=== PATIENT | female | born 1955 | race Caucasian/White ===

== ENCOUNTER → 2019-01-18 | Outpatient (CLI) | payer BC ==
--- NOTE | 2019-01-19 21:57 | CT ---
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 Delayed images through the kidneys were obtained. Coronal/sagittal reconstructions performed. CT DLP: 440 mGycm Automated exposure control for dose reduction was used. FINDINGS: Visualized intracranial structures, paranasal sinuses, mastoid air cells, and orbits and globes appea r clear. Nasopharynx is clear. Prominent dental amalgam causing artifacts limiting visualization of portions of the oropharynx. Punc arizmendi calcification suggested in the region of the left palatine tonsils likely reflects sequela of pr ior infection. Some asymmetric effacement of the right vallecular space likely secondary to asymmetrically more tons illar hypertrophy. Epiglottis and prevertebral soft tissues within normal limits. Glottic and subglottic structures as well as the tracheal column and visualized upper lungs appear cl ear. Thyroid, submandibular, and left parotid glands appear satisfactory. Large fungating mass along the right lateral posterior lower scalp and upper neck located behind the right ear measures up to 5.8 cm AP by 1.2 cm thick by 6.7 cm craniocaudal. 9 mm enlarged lymph node posteriorly and just adjacent to the anterior margin of the mass within the superficial lobe of the right parotid gland. Asymmetrically, borderline enlarged right station to be and posterior truncal lymph nodes on the righ t measure up to 7 mm, refer to axial image 27, 32, and 36. No additional cervical lymphadenopathy seen. Moderate endplate spondylosis mid cervical spine. IMPRESSION: 1. FUNGATING MASS ALONG THE SKIN OF THE RIGHT LATERAL POSTERIOR SCALP AND UPPER NECK LOCATED BEHIND T HE RIGHT EAR MEASURING 6.7 X 5.8 X 1.2 CM. 2. MILDLY ENLARGED 9 MM RIGHT PAROTID SPACE LYMPH NODE LOCATED POSTERIORLY IN THE SUPERFICIAL LOBE A DJACENT TO THE ANTERIOR MARGIN OF THE MASS. 3. A COUPLE ADDITIONAL BORDERLINE SIZED RIGHT-SIDED CERVICAL LYMPH NODES WITHIN STATION 2B AND LIP AND GATE BUILDER IOR TRIANGLE ARE SOMEWHAT SUSPICIOUS GIVEN ASYMMETRY.
== END | disposition home or self-care (01) ==
LOC: RADCTMAIN 07:15
PROVIDERS: ATTEND Surgery Plastic and Reconstructive Surgery
DX: R59.9 Enlarged lymph nodes, unspecified (principal); C44.42 Squamous cell carcinoma of skin of scalp and neck; Z88.2 Allergy status to sulfonamides
CPT/HCPCS: 70491; Q9967

== ENCOUNTER → 2020-03-26 | Outpatient (CLI) | payer BC ==
[2020-03-26 08:44] LABS: Appearance,Urine Clear (Clear); Bilirubin,Urine Negative (Negative); Blood,Urine Negative (Negative); Color,Urine Light Yellow; Glucose,Urine (UA) Negative (Negative); HGB 12.9 gm/dL (11.4-16.0); Ketones,Urine Negative (Negative); Leukocyte Esterase,Urine Negative (Negative); MCH 31.2 pg (25.0-35.0); MCV 91.8 fL (80.0-100.0); Nitrite,Urine Negative (Negative); PH, Urine 6.5 (5.0-8.0); Platelet Count 266 k/uL (150-450); Protein,Urine Negative (Negative); RBC 4.14 m/uL (3.80-5.40); RDW 13.3 % (11.5-15.5); Specific Gravity,Urine 1.012 (1.001-1.035); Urobilinogen,Urine <2.0 mg/dL (<2.0); WBC 5.1 k/uL (3.8-10.6)
[2020-03-26 08:50] LABS: Albumin 4.5 g/dL (3.5-5.0); Calcium 9.6 mg/dL (8.4-10.2); Partial Thromboplastin Time 23.5 sec (22.0-30.0); Potassium 4.5 mmol/L (3.5-5.1); Prothrombin Time 10.3 sec (9.0-12.0); Total Bilirubin 0.4 mg/dL (0.2-1.3); Total Protein 7.8 g/dL (6.3-8.2)
== END | disposition home or self-care (01) ==
LOC: LABPAT 07:52
PROVIDERS: ATTEND Orthopaedic Surgery
DX: Z01.818 Encounter for other preprocedural examination (principal); Z01.812 Encounter for preprocedural laboratory examination
CPT/HCPCS: 36415; 80053; 81003; 85027; 85610; 85730; 87070; 93005

== ENCOUNTER 2020-04-06 05:40 | Observation (INO) | payer BC ==
[2020-03-30 11:02] VITALS: BMI 26.2
[~2020-04-06 05:40] MED LIST: ACETAMINOPHEN TAB 500 MG TAB PO PRN; DEXAMETHASONE SOD PHOSPHATE 4 MG/ML 1 ML VIAL IV ONE; GABAPENTIN 300 MG CAP PO PRN; HYDROmorphone 0.5 MG/0.5 ML SYRINGE IVP PRN; LIDOCAINE 1% (10MG/ML) FOR IV START INTRADERMA PRN; MELOXICAM 7.5 MG TAB PO PRN; MIDAZOLAM 2 MG/2 ML VIAL IV PRN; ONDANSETRON 4 MG/2 ML VIAL IVP ONE; ROPIVACAINE 246.25 MG, EPINEPHrine 0.5 MG, KETOROLAC 30 MG, cloNIDine HCL/PF 80 MCG, WA... MISCELLANE PRN; TRANEXAMIC ACID 1,000 MG in SODIUM CHLORIDE 0.9% 100 ML IVPB PRN
[2020-04-06] MEDS ORDERED: LIDOCAINE 1% (10MG/ML) FOR IV START INTRADERMA ONE (06:30)
[2020-04-06] MEDS: LACTATED RINGERS 1,000 ML IV SCH (06:31)
[2020-04-06] MEDS ORDERED: MIDAZOLAM 2 MG/2 ML VIAL ONE (06:55)
[2020-04-06] MEDS ORDERED: fentaNYL (PF) 50 MCG/ML 2 ML AMP ONE (06:55)
[2020-04-06] MEDS ORDERED: SODIUM CHLORIDE 0.9% IRRIG 1,000 ML BTL IRRIGATION ONE (06:55)
[2020-04-06] MEDS ORDERED: PROPOFOL 10 MG/ML 20 ML VIAL IV ONE (06:55)
[2020-04-06] MEDS ORDERED: TRANEXAMIC ACID 1,000 MG/10 ML VIAL ONE (06:55)
[2020-04-06] MEDS ORDERED: ePHEDrine SULFATE/0.9% NACL/PF 50 MG/5 ML SYRINGE IV ONE (06:55)
[2020-04-06] MEDS ORDERED: HEPARIN SODIUM,PORCINE 10,000 UNIT/ML 1 ML VIAL ONE (06:55)
[2020-04-06] MEDS ORDERED: SODIUM CHLORIDE 0.9% 100 ML BAG ONE (06:55)
[2020-04-06] MEDS ORDERED: HYDROmorphone 0.2 MG/1 ML SYRINGE IVP PRN (06:56)
[2020-04-06] MEDS ORDERED: NALOXONE 0.4 MG/ML 1 ML VIAL IV PRN (06:56)
[2020-04-06] MEDS ORDERED: HYDROcodone/APAP 5-325MG 1 EACH TAB PO PRN (06:56)
[2020-04-06] MEDS ORDERED: hydrOXYzine pamoate 25 MG CAP PO PRN (06:56)
[2020-04-06] MEDS ORDERED: MAGNESIUM HYDROXIDE 2,400 MG/10 ML CUP PO PRN (06:56)
[2020-04-06] MEDS ORDERED: HYDROmorphone 0.5 MG/0.5 ML SYRINGE IVP PRN (06:56)
[2020-04-06] MEDS ORDERED: HYDROmorphone 1 MG/ML 1 ML SYRINGE IVP PRN (06:56)
[2020-04-06] MEDS ORDERED: diazePAM 5 MG TAB PO PRN (06:56)
[2020-04-06] MEDS ORDERED: ONDANSETRON 4 MG/2 ML VIAL IVP PRN (06:56)
[2020-04-06] MEDS ORDERED: ceFAZolin 3,000 MG in SODIUM CHLORIDE 0.9% IRRIGATIO 3,000 ML IRRIGATION ONE (06:59)
[2020-04-06] MEDS ORDERED: LACTATED RINGERS 1,000 ML IV ONE (08:12)
--- NOTE | 2020-04-06 08:21 | P.OP ---
Date of Procedure: 04/06/20 Preoperative Diagnosis: Severe osteoarthritis right hip Postoperative Diagnosis: Severe osteoarthritis right hip Procedure(s) Performed: Right total hip arthroplasty with a direct anterior approach Implants: [employer]hew Polarstem standard size 2 [employer] R3, 3 hole hemispherical acetabular shell, 48 mm [employer] Reflection 6.5 mm cancellus screw, 20 mm 2 [employer] R3, XLPE 20 acetabular liner [employer]hew Oxinium femoral head 32 m, +0 All components were press-fit. The articulation is Oxinium on polyethylene. Anesthesia: spinal Surgeon: Walter Leyva Mower Mechanic #1: Kari Overton Estimated Blood Loss (ml): 100 Pathology: other (Femoral head) Condition: stable Disposition: PACU Indications for Procedure: After failure of conservative treatment we discussed the surgical and nonsurgic al treatment options at length. Patient wishes to proceed with a total hip arthroplasty with a direct anterior approach. Complications specific to this procedure were discussed at length, including but not limited to infection, leg length discrepancy, dislocation, nerve injury, and fracture. Covid-19 was also discussed at length with the patient, and they are aware of the current policies and procedures. The patient was given the option of delaying surgery, but they elect to proceed knowing these risks. Patient is aware of all these complications and informed consent was obtained Operative Findings: The operative findings are consistent with severe osteoarthritis the right hip Description of Procedure: Patient was seen and evaluated in the preoperative area and the consent was reviewed. The operative site was marked with a skin marker. The patient was then brought to the operating room and given preoperative antibiotics i ntravenously. 1 g of Tranexamic acid was also given intravenously. A spinal anesthetic was administered by the anesthesia department. The patient was then placed on the Essex table with the bony prominences well-padded. The hip area was then prepped with a ChloraPrep solution and draped in the usual sterile fashion. A universal timeout was then performed, which confirmed the patient's name, s urgical site, ALLERGIES, and procedure being performed on the consent. Next the incision site was located at 1 cm distal and 1 cm lateral to the anterior superior iliac spine. The skin and subcutaneous tissues were sharply incised. Incision was carefully dissected down to the fascia overlying the tensor fascia sera muscle. This fascia was then incised in line with the incision. Care was taken to stay laterally in order to avoid injuring the lateral femoral cutaneous nerve. Next, using blunt finger dissection, the tensor fascia sera muscle was dissected off its investing fascia. The muscle was then carefully retracted laterally with a cobra retractor over the lateral neck of the femur. Next, the circumflex vessels were identified and cauterized using the AquaMantis device. The anterior hip capsule was then exposed. The capsule was then opened and an inverted T fashion. Cobra retractors were then placed intracapsularly. The retractors were maintained intracapsular throughout the procedure. The proximal femur was then visualized. A small amount of traction was placed on the leg. The femoral neck was then osteotomized appropriate level above the lesser trochanter. A small wedge of bone was then removed from the remaining femoral head. Next, using a corkscrew the femoral head was removed from the acetabulum. On gross visual inspection, the femoral head had complete loss of articular cartilage and multiple periarticular osteophytes. The femoral head was then measured. Attention was then turned to the acetabulum. The acetabulum was exposed and any remaining labrum was excised. Sequential reaming of the acetabulum was performed using fluoroscopic guidance until there was a good bed of bleeding cancellus bone. When the appropriate size was reached, a trial was then placed. The position and fit of the trial was checked with fluoroscopy. The trial was then removed. Then, using fluoroscopic guidance, the final implant was impacted at 20 of anteversion and 40 of abduction, and fully seated in the acetabulum. 2 screws were then placed in the acetabulum. Again fluoroscopy was used to check position of the screws. Next, the liner was then impacted, with a 20 elevated liner located in the anterior superior quadrant. Component locking was confirmed. Attention was then directed to the femur. With the aid of the Essex table, the femur was externally rotated to approximately 130, extended, and adducted under the opposite leg. A side hook was then placed under the proximal femur, and the side hook elevator was used to elevate the proximal femur while releasing the capsule. Retractors were then placed. A capsular release was performed, as well as a release of the conjoined tendon, which afforded excellent visualization of the proximal femur. Next, a box osteotome was used to lateralize the proximal femur. A handbag operator was then used to locate the femoral canal. Sequential broaching was then performed with appropriate size which afforded excellent fixation in the proximal femur. A trial was then placed with appropriate head and neck, and the hip was gently reduced with the aid of the Essex table. Fluoroscopy was then used to check position of the components, as well as to ensure equal leg lengths. The hip was then gently dislocated and the trials were then removed. Final implants were then impacted and the hip was again reduced. Final fluoroscopic x-rays confirmed that the components were in anatomic position, as well as equal leg lengths. The hip was also taken through range of motion, and found to be stable. The hip was then copiously irrigated with antibiotic solution with pulsatile lavage. The hip was then irrigated with Irrisept solution. The soft tissues were then injected with a ropivacaine solution, which consisted of 246.25 mg of ropivacaine, 0.5 mg of epinephrine, 30 mg of Toradol, 80 g of clonidine, and 48.45 mL of sterile water, for a total of 100 mL of fluid injected. A second dose of 1 g of Tranexamic acid was also given intravenously. Any blood collected by Cell Saver was then returned to the patient at this time. The fascia was then closed with 2-0 strata fix suture. The subcutaneous tissue was closed with 3-0 Vicryl. The subcuticular tissue was closed with 3-0 strata fix suture. The skin was then closed with Exofin skin glue. After the glue and dried, and Optifoam silver impregnated dressing was applied. The patient was then transferred to the recovery room in stable condition. The assistant professor of criminal justice WINNIE Eden was required due to the complexity of surgery, and the need for skilled certified surgical technician for positioning, draping, exposure, retraction, and closure of the wound.
[2020-04-06 08:39] VITALS: RESP 16
--- NOTE | 2020-04-06 08:56 | FL ---
EXAMINATION TYPE: FL guidance operating room, XR Hip Limited RT DATE OF EXAM: 04/06/2020 CLINICAL HISTORY: Right hip pain and osteoarthritis. TECHNIQUE: Fluoroscopy. Intraoperative limited views right hip. COMPARISON: None. FINDINGS: Fluoroscopic guidance was provided during right hip replacement procedure performed by Dr. Leyva. A total of 45 seconds of fluoroscopic time was utilized during the procedure and two spot intraoperative images are acquired. Intraoperative images acquired show metallic hardware from total right hip arthroplasty satisfactory in position on frontal projection with surrounding lucency or gas noted. IMPRESSION: As Above.
--- NOTE | 2020-04-06 09:20 | XR ---
Limited right hip HISTORY: Status post right hip arthroplasty Single frontal view of the right hip Patient is status post right hip arthroplasty. There is anatomic alignment. Lucency is present in the soft tissues. IMPRESSION: Orthopedic follow-up.
[2020-04-06] MEDS: SODIUM CHLORIDE 0.9% 1,000 ML IV SCH ×2 (13:45→22:03)
[2020-04-06] MEDS: HYDROcodone/APAP 5-325MG 1 EACH TAB PO PRN (15:04)
[2020-04-06] MEDS ORDERED: SENNOSIDES-DOCUSATE SODIUM 1 EACH TAB PO SCH (21:00)
[2020-04-06] MEDS: ASPIRIN 325 MG TAB PO SCH (22:03)
[2020-04-07 03:43] VITALS: TEMP 98.1
[2020-04-07 06:08] LABS: Basophils % (A) 0 %; Eosinophils % (A) 0 %; HCT 31.4 % (34.0-46.0); HGB 10.4 gm/dL (11.4-16.0); Lymphocytes % (A) 11 %; MCH 30.3 pg (25.0-35.0); MCHC 33.2 g/dL (31.0-37.0); MCV 91.2 fL (80.0-100.0); Mean Platelet Volume 7.1; Monocytes # (A) 0.8 k/uL (0-1.0); Monocytes % (A) 10 %; Neutrophils # (A) 6.6 k/uL (1.3-7.7); Neutrophils % (A) 78 %; Platelet Count 222 k/uL (150-450); RBC 3.44 m/uL (3.80-5.40); RDW 12.9 % (11.5-15.5); WBC 8.4 k/uL (3.8-10.6)
[2020-04-07] MEDS: ASPIRIN 325 MG TAB PO SCH (07:23)
[2020-04-07] MEDS: HYDROcodone/APAP 5-325MG 1 EACH TAB PO PRN (07:23)
[2020-04-07] MEDS: LACTATED RINGERS 1,000 ML IV SCH (07:24)
[2020-04-07 07:54] VITALS: BP 117/67; PULSE 67
--- NOTE | 2020-04-07 08:04 | P.DS ---
Providers Date of admission: 04/07/20 01:30 Expected date of discharge: 04/07/20 Attending physician: Walter Leyva Consults: 04/06/20 06:56 Consult Physician Routine Consulting Provider: Adiel Monet Consult Reason/Comments: medical management Do you want consulting provider notified?: Yes Primary care physician: Marianne Webb - Discharge Diagnosis(es) (1) Osteoarthritis of right hip Current Visit: Yes Status: Acute (2) S/P total hip arthroplasty Current Visit: Yes Status: Acute Hospital Course: This is a 64-year-old female with known history of degenerative arthritis of the right hip. The patient presented for evaluation as an outpatient. After discussion and consideration patient elects to proceed with total hip arthroplasty. The patient is seen preoperatively by Dr. Leyva and medically cleared for surgery by their primary care physician. Patient is admitted to [facility] on 04/06/2020 for total hip arthroplasty. The procedure is performed without complication or sequelae. The patient is doing well postoperatively. Labs and vital signs are stable on day of discharge. On day of discharge patient's hip incision is healing well. There is minimal erythema. There is no drainage noted at this time. There is minimal soft tissue swelling to the hip and thigh. Patient has full foot and ankle motion without difficulty or pain. Calf is soft and nontender to palpation. Neurovascular status to the right lower extremity is intact. Patient is discharged home in good condition. Opioid start talking form is reviewed and signed. Please see med rec for accurate list of home medications. Plan - Discharge Summary Discharge Rx Participant: Yes New Discharge Prescriptions: New Aspirin 325 mg PO BID #60 tab HYDROcodone/APAP 5-325MG [[place] 5-325] 1 - 2 tab PO Q6HR PRN #48 tab PRN Reason: Pain Sennosides [Senokot] 2 tab PO DAILY PRN #60 tablet PRN Reason: Constipation No Action lisinopriL [Zestril] 20 mg PO DAILY Naproxen Sodium [Aleve] 220 mg PO Q12HR PRN PRN Reason: Pain Acetaminophen [Tylenol] 650 mg PO Q4-6H PRN PRN Reason: Pain Multivitamins, Thera [Multivitamin (formulary)] 1 tab PO DAILY Discharge Medication List Acetaminophen [Tylenol] 650 mg PO Q4-6H PRN 03/30/20 [History] Multivitamins, Thera [Multivitamin (formulary)] 1 tab PO DAILY 03/30/20 [History] Naproxen Sodium [Aleve] 220 mg PO Q12HR PRN 03/30/20 [History] lisinopriL [Zestril] 20 mg PO DAILY 03/30/20 [History] Aspirin 325 mg PO BID #60 tab 04/07/20 [Rx] HYDROcodone/APAP 5-325MG [[place] 5-325] 1 - 2 tab PO Q6HR PRN #48 tab 04/07/20 [Rx] Sennosides [Senokot] 2 tab PO DAILY PRN #60 tablet 04/07/20 [Rx] Follow up Appointment(s)/Referral(s): Walter Leyva DO [Doctor of Osteopathic Medicine] - 2 Weeks Activity/Diet/Wound Care/Special Instructions: Weightbearing as tolerated with walker. Leave dressing intact. Dressing may be removed by home care nurse or by patient in 10 days. May shower with dressing on. Please take aspirin 325mg twice daily for 30 days to prevent blood clots. Recommend use of compression stockings daily until follow up to help prevent swelling and blood clots. May remove at night before sleeping. Please follow-up with [facility] in 2 weeks and call with any questions or concerns, . Discharge Disposition: HOME WITH HOME HEALTH SERVICES
[2020-04-07] MEDS ORDERED: MULTIVITAMINS, THERA 1 EACH TAB PO SCH (09:00)
[2020-04-07] MEDS ORDERED: MELOXICAM 7.5 MG TAB PO SCH (09:00)
[2020-04-07] MEDS ORDERED: lisinopriL 20 MG TAB PO SCH (09:00)
--- NOTE | 2020-04-07 21:52 | P.CONS ---
History of Present Illness - Reason for Consult Consult date: 04/07/20 Medical management Requesting physician: Walter Leyva - Chief Complaint Right hip pain - History of Present Illness Consultation: This is a pleasant 60 feel patient of . Chronic stable medical conditions include hypertension, osteoarthritis,. Patient underwent right total hip arthroplasty. Patient's symptoms had been progressively getting worse. Had tried conservative measures. Worse with activity better with rest. Pain was localized to the right hip. He did defending with her daily activity. This morning patient's pain is better controlled. Patient been up to the bathroom. No nausea vomiting. No chest pain or shortness breath. Feeling well Review of systems: GEN.: None EYES: None HEENT: None NECK: None RESPIRATORY: None CARDIOVASCULAR: None GASTROINTESTINAL: None GENITOURINARY: None MUSCULOSKELETAL: Joint pains LYMPHATICS: None HEMATOLOGICAL: None PSYCHIATRY: None NEUROLOGICAL: None Past medical history to include: Hypertension, osteoarthritis, basal cell skin cancer treated with radiation, Social history: . No smoking. Alcohol occasionally. Physical examination: VITAL SIGNS: 98.1, 67, 16, 117/67, 97% on room air GENERAL: BMI 26.5, sitting up in chair, comfortable. EYES: Pupils equal. Conjunctiva normal. HEENT: External appearance of nose and ears normal, oral cavity grossly normal. NECK: JVD not raised; masses not palpable. HEART: First and second heart sounds are normal; no edema. LUNGS: Respiratory rate normal; clear to auscultation. ABDOMEN: Soft, nontender, liver spleen not palpable, no masses palpable. PSYCH: Alert and oriented x3; mood and affect normal. MUSCULAR skeletal: Evidence of OA in the hands. Dressing over the right hip incision. NEUROLOGICAL: Cranial nerves grossly intact; no facial asymmetry, power and sensation grossly intact. LYMPHATICS: No lymph nodes palpable in the axilla and neck INVESTIGATIONS, reviewed in the clinical context: White count 8.4 hemoglobin 10.4 platelets 222 Previous testing: On 04/03/2020. Hemoglobin 12.9 potassium 4.5 crit and 0.85 Assessment: -Right total hip arthroplasty -Primary osteoarthritis -Acute postprocedure blood loss anemia, as expected from surgery -Essential hypertension Plan: Care was discussed with the patient. Have told the patient to hold off her lisinopril until his systolic blood pressure raises to about 1:30. Patient is to take her blood pressure every morning. And follow-up with family doctor. Patient getting aspirin for DVT prophylaxis. Pain control in place. Thank you Dr. Leyva Past Medical History Past Medical History: Cancer, Hypertension, Osteoarthritis (OA) Additional Past Medical History / Comment(s): hx. heart murmur, hx. basal cell skin cancer, spot behind ear this year-had radiation to tx. History of Any Multi-Drug Resistant Organisms: None Reported Past Surgical History: Hernia Repair Additional Past Surgical History / Comment(s): hernia repair as a baby, D & C x2 Past Anesthesia/Blood Transfusion Reactions: No Reported Reaction Past Psychological History: No Psychological Hx Reported Smoking Status: Never smoker Past Alcohol Use History: Occasional Past Drug Use History: None Reported - Past Family History Brother(s) Family Medical History: Cancer Additional Family Medical History / Comment(s): melanoma Medications and Allergies Home Medications Medication Instructions Recorded Confirmed Type Acetaminophen [Tylenol] 650 mg PO Q4-6H PRN 03/30/20 04/06/20 History Multivitamins, Thera [Multivitamin 1 tab PO DAILY 03/30/20 04/06/20 History (formulary)] Naproxen Sodium [Aleve] 220 mg PO Q12HR PRN 03/30/20 04/06/20 History lisinopriL [Zestril] 20 mg PO DAILY 03/30/20 04/06/20 History Aspirin 325 mg PO BID #60 tab 04/07/20 Rx HYDROcodone/APAP 5-325MG [[place] 1 - 2 tab PO Q6HR PRN #48 tab 04/07/20 Rx 5-325] Sennosides [Senokot] 2 tab PO DAILY PRN #60 tablet 04/07/20 Rx Allergies Allergy/AdvReac Type Severity Reaction Status Date / Time Sulfa (Sulfonamide Allergy Rash/Hives Verified 04/06/20 06:08 Antibiotics) Physical Exam Vitals: Vital Signs Temp Pulse Pulse Resp BP Pulse Ox 04/07/20 07:53 98.1 F 67 16 117/67 97 04/07/20 07:30 16 04/07/20 02:05 98.1 F 69 16 118/67 97 04/06/20 20:00 76 16 04/06/20 14:00 97.4 F L 76 16 106/67 96 04/06/20 13:41 16 04/06/20 11:51 97.8 F 89 16 126/72 98 04/06/20 11:00 72 16 111/57 96 04/06/20 10:30 82 16 110/65 97 04/06/20 10:15 82 16 105/61 95 04/06/20 10:00 77 16 101/58 96 Intake and Output 04/06/20 04/07/20 04/07/20 22:59 06:59 14:59 Other: Voiding Method Toilet Toilet # Voids 1 Results CBC & Chem 7: 04/07/20 05:32 Labs: Abnormal Lab Results - Last 24 Hours (Table) 04/07/20 Range/Units 05:32 RBC 3.44 L (3.80-5.40) m/uL Hgb 10.4 L (11.4-16.0) gm/dL Hct 31.4 L (34.0-46.0) %
== END 2020-04-07 13:19 | disposition home health service (06) ==
LOC: OR 05:40 → 4SSUR 11:21 → OR 04-07 01:49
PROVIDERS: ADMIT Orthopaedic Surgery; ATTEND Orthopaedic Surgery
DX: M16.11 Unilateral primary osteoarthritis, right hip (principal); D62 Acute posthemorrhagic anemia; I10 Essential (primary) hypertension; K21.9 Gastro-esophageal reflux disease without esophagitis; M19.042 Primary osteoarthritis, left hand; M19.041 Primary osteoarthritis, right hand; Z79.1 Long term (current) use of non-steroidal anti-inflammatories (NSAID); Z79.899 Other long term (current) drug therapy; Z88.2 Allergy status to sulfonamides; Z85.828 Personal history of other malignant neoplasm of skin; Z97.3 Presence of spectacles and contact lenses; Z92.3 Personal history of irradiation; Z83.3 Family history of diabetes mellitus; Z82.49 Family history of ischemic heart disease and other diseases of the circulatory system; Z84.89 Family history of other specified conditions; Z80.8 Family history of malignant neoplasm of other organs or systems
CPT/HCPCS: 97116; 97110; 97161; 97165; 86891; 86900; 86901; 85025; 86850; 88300; 73501; 27130; G0378; C1776; J2250; J0171; J1644; J1100; J0690 ×2; J2405; J3010; J1885; J1170; J2795; J2704; J0735